=== PATIENT | female | born 1940 | race American Indian/Alaskan Native ===

== ENCOUNTER 2017-10-10 13:00 | Day surgery (SDC) | payer MEDICARE ==
[2017-10-10 13:46] LABS: Basophils % (Auto) 0.6 % (0.0-1.8); Eosinophils # (Auto) 0.1 K/mm3 (0.0-0.4); Eosinophils % (Auto) 1.9 % (0.0-4.3); Hematocrit 33.3 % (30.3-42.9); Hemoglobin 11.1 gm/dl (10.1-14.3); Lymphocytes # (Auto) 1.5 K/mm3 (1.2-5.4); Lymphocytes % (Auto) 23.3 % (13.4-35.0); Mean Corpuscular HGB Conc 33 % (30-34); Mean Corpuscular Hemoglobin 28 pg (28-32); Mean Corpuscular Volume 83 fl (79-97); Monocytes # (Auto) 0.8 K/mm3 (0.0-0.8); Monocytes % (Auto) 13.3 % (0.0-7.3); Platelet Count 228 K/mm3 (140-440); Red Blood Count 3.99 M/mm3 (3.65-5.03); Red Cell Distribution Width 12.9 % (13.2-15.2)
[2017-10-10 14:04] LABS: INR 1.1 (0.87-1.13)
[2017-10-10 14:05] LABS: Partial Thromboplastin Time 26.2 Sec. (24.2-36.6)
--- NOTE | 2017-10-10 15:28 | Short Stay Summary ---
Short Stay Documentation Date of service: 10/10/17 - History Principal diagnosis: alzheimers H&P: obtained from office - Allergies and Medications Current Medications: Allergies No Known Allergies Allergy (Unverified 10/10/17 13:01) - Physical exam General appearance: no acute distress - Brief post op/procedure progress note Date of procedure: 10/10/17 Pre-op diagnosis: alzheimers Post-op diagnosis: same Procedure: Flouro guided lumbar puncture Anesthesia: local Surgeon: RAHUL BURGESS Estimated blood loss: none Pathology: list (4 tubes) Specimen disposition: to lab Condition: stable - Disposition Condition at discharge: Good Disposition: DC-01 TO HOME OR SELFCARE Short Stay Discharge Plan Follow up with: NEIL TRACEY MD [Primary Care Provider] - 7 Days
--- NOTE | 2017-10-10 15:33 | Fluoroscopy Report ---
FLUOROSCOPY LUMBAR PUNCTURE History: Alzheimer's disease. Description of procedure: Informed consent was obtained. Sterile technique was utilized. 1% lidocaine for skin anesthesia. Using fluoroscopy guidance, lumbar puncture was performed at the L4-5 level. 2 fluoroscopic images were captured. There was spontaneous return of clear CSF. The opening pressure was not elevated. 4 tubes of CSF was collected for laboratory analysis. No complications. IMPRESSION: Successful fluoroscopy-guided lumbar puncture at L4-5.
[2017-10-10 16:34] LABS: Glucose,CSF 98 mg/dL
[2017-10-10 17:00] LABS: Total Cells Counted 24 /mm3
[2017-10-10 17:01] LABS: Appearance,CSF Clear; Red Blood Cell,CSF 50 /mm3 (0-0); White Blood Cell,CSF 2 /mm3 (1-10)
[2017-10-10 17:02] LABS: Basophils CSF 0 %
[2017-10-10 17:18] VITALS: BP 146/74
== END 2017-10-10 17:15 | disposition home or self-care (01) ==
LOC: CATHLABREC 13:00 → EDSTATUS 13:30 → CATHLABREC 17:15
PROVIDERS: ATTEND Specialist
DX: G30.9 Alzheimer's disease, unspecified (principal); Z79.01 Long term (current) use of anticoagulants; Z79.899 Other long term (current) drug therapy
CPT/HCPCS: 36415; 62270; 77003; 82947; 82962; 84160; 85025; 85610; 85730; 87116; 89051